=== PATIENT | female | born 1990 | race Caucasian/White ===

== ENCOUNTER 2019-05-02 15:40 | Emergency (ER) | payer BC, OTHER ==
--- NOTE | 2019-05-02 16:10 | ED ---
Fall HPI - General Chief Complaint: Fall Stated Complaint: [facility] - hit by hi-lo, ankle/arm injury Time Seen by Provider: 05/02/19 15:48 Source: patient, RN notes reviewed Mode of arrival: ambulatory Limitations: no limitations - History of Present Illness Initial Comments: 28-year-old female presented emergency Department from [facility] with chief level fall. Patient states she was at work states that she was struck by a high low causing her to fall. She has an abrasion to her right ankle complains that she fell onto her buttocks with mild discomfort. Patient refused x-rays at [facility]. Patient's tetanus is up-to-date. Patient was sent here for ultrasound as she is currently . Patient is A2. She denies any abdominal complaints denies any vaginal bleeding or vaginal discharge. - Related Data Home Medications Medication Instructions Recorded Confirmed Dayquil 1 tab PO BID PRN 04/07/16 04/07/16 Previous Rx's Medication Instructions Recorded Albuterol Inhaler [Ventolin Hfa 2 puff INHALATION Q4HR PRN #1 04/07/16 Inhaler] inhaler methylPREDNISolone [Medrol] 4 mg PO DIRECTED #1 tab.ds.pk 04/07/16 Cephalexin [Keflex] 500 mg PO Q8HR #15 cap 05/02/19 Allergies Allergy/AdvReac Type Severity Reaction Status Date / Time No Known Allergies Allergy Verified 05/02/19 15:48 Review of Systems ROS Statement: Those systems with pertinent positive or pertinent negative responses have been documented in the HPI. ROS Other: All systems not noted in ROS Statement are negative. Past Medical History Past Medical History: Asthma History of Any Multi-Drug Resistant Organisms: None Reported Past Surgical History: Breast Surgery Additional Past Surgical History / Comment(s): breast reduction Past Psychological History: No Psychological Hx Reported Smoking Status: Current every day smoker Past Alcohol Use History: None Reported Past Drug Use History: None Reported General Exam Limitations: no limitations General appearance: alert, in no apparent distress Head exam: Present: atraumatic, normocephalic, normal inspection Eye exam: Present: normal appearance, PERRL, EOMI. Absent: scleral icterus, conjunctival injection, periorbital swelling ENT exam: Present: normal exam, normal oropharynx, mucous membranes moist Neck exam: Present: normal inspection, full ROM. Absent: tenderness, meningismus, lymphadenopathy Respiratory exam: Present: normal lung sounds bilaterally. Absent: respiratory distress, wheezes, rales, rhonchi, stridor Cardiovascular Exam: Present: regular rate, normal rhythm, normal heart sounds. Absent: systolic murmur, diastolic murmur, rubs, gallop, clicks GI/Abdominal exam: Present: soft, normal bowel sounds. Absent: distended, tenderness, guarding, rebound, rigid Extremities exam: Present: other (Abrasion to the right lateral malleoli region, minimal tenderness neurovascular intact full range of motion remaining extremity exam within normal limits.) Back exam: Present: full ROM. Absent: tenderness, paraspinal tenderness, vertebral tenderness Skin exam: Present: warm, dry, intact, normal color. Absent: rash Course Vital Signs 05/02/19 15:43 Temperature 98.1 F Pulse Rate 81 Respiratory 20 Rate Blood Pressure 103/71 O2 Sat by Pulse 99 Oximetry Medical Decision Making - Medical Decision Making Ultrasound was obtained which shows no acute abnormality's. Patient has a single live IUP 6 weeks 1 day. Patient has an abrasion to her right ankle she's apparent tenderness. Patient will be discharged advised to follow-up with [facility] and [facility]. We treated for asymptomatic bacteria in . Return parameters were discussed. - Lab Data Lab Results 05/02/19 Range/Units 16:10 Urine Color Light Yellow Urine Appearance Clear (Clear) Urine pH 6.0 (5.0-8.0) Ur Specific [place] 1.010 (1.001-1.035) Urine Protein Negative (Negative) Urine Glucose (UA) Negative (Negative) Urine Ketones Negative (Negative) Urine Blood Negative (Negative) Urine Nitrite Negative (Negative) Urine Bilirubin Negative (Negative) Urine Urobilinogen <2.0 (<2.0) mg/dL Ur Leukocyte Esterase Moderate H (Negative) Urine RBC 3 (0-5) /hpf Urine WBC 10 H (0-5) /hpf Ur Squamous Epith Cells 5 H (0-4) /hpf Amorphous Sediment Rare H (None) /hpf Urine Bacteria Rare H (None) /hpf Urine Mucus Rare H (None) /hpf Disposition Clinical Impression: Fall, Abrasion, right ankle, initial encounter, , Asymptomatic bacteriuria during Disposition: HOME SELF-CARE Condition: Stable Instructions (If sedation given, give patient instructions): Abrasion (ED) Additional Instructions: Please return to the Emergency Department if symptoms worsen or any other concerns. Prescriptions: Cephalexin [Keflex] 500 mg PO Q8HR #15 cap Is patient prescribed a controlled substance at d/c from ED?: No Referrals: Glen Desai MD [Primary Care Provider] - 1-2 days Time of Disposition: 17:13
[2019-05-02 16:19] LABS: Amorphous Sediment,Urine Rare /hpf; Appearance,Urine Clear (Clear); Bacteria,Urine Rare /hpf; Bilirubin,Urine Negative (Negative); Blood,Urine Negative (Negative); Color,Urine Light Yellow; Glucose,Urine (UA) Negative (Negative); Ketones,Urine Negative (Negative); Leukocyte Esterase,Urine Moderate (Negative); Mucus,Urine Rare /hpf; Nitrite,Urine Negative (Negative); Protein,Urine Negative (Negative); RBC,Urine 3 /hpf (0-5); Squamous Epithelial Cell,Urine 5 /hpf (0-4); Urobilinogen,Urine <2.0 mg/dL (<2.0); WBC,Urine 10 /hpf (0-5)
--- NOTE | 2019-05-02 16:48 | US ---
EXAMINATION TYPE: Transabdominal DATE OF EXAM: 05/02/2019 4:34 PM COMPARISON: NONE CLINICAL HISTORY: fall, pain, sent from outpatient. Fall after being hit by hi-lo, 3, para 2 EXAM PERFORMED: Transabdominal (TA) EXAM MEASUREMENTS: GESTATIONAL AGE / DATING Physician Established: Not established yet Dates by LMP: (7 weeks/1 days) EDC: 12/18/2019 Dates by First Scan: This is 1st scan Dates by Current Scan for: (6 weeks/1 days) EDC: 12/25/2019 MATERNAL ANATOMY Uterus: 9.0 x 5.1 x 5.9cm, anteverted Right Ovary: 3.8 x 2.3 x 1.7cm Left Ovary: 3.4 x 2.4 x 1.9cm Post CDS / Adnexa: wnl Presence of free fluid: no Presence of corpus luteal cyst: not seen Presence of subchorionic bleed: no GESTATION / SURVEY CRL: 0.4cm (6 weeks/1 days) Yolk Sac (normal less than 6mm): 3.6mm Heart Rate: 121 bpm Rhythm: Normal IUP: Viable IUP Date of LMP: 03/13/2019 Beta HcG (if available): Not available at time of exam Viable single IUP measuring 6 weeks 1 day with a heart rate of 121bpm and an estimated delivery date of 12/25/2019. Single live intrauterine gestation is seen as the gestational sac, yolk sac, pole are present. No free fluid in pelvis. Both ovaries are seen. No suspicious extra ovarian adnexal lesions. IMPRESSION: Single live intrauterine gestation, mean crown-rump length is 0.4 cm corresponding to 6 w [place] 1 day old fetus.
[2019-05-02 17:26] VITALS: BP 119/75; PULSE 69; RESP 18; TEMP 98.3
== END 2019-05-02 17:25 | disposition home or self-care (01) ==
LOC: EC 15:40
DX: O9A.211 Injury, poisoning and certain other consequences of external causes complicating pregnancy, first trimester (principal); S90.511A Abrasion, right ankle, initial encounter; O99.89 Other specified diseases and conditions complicating pregnancy, childbirth and the puerperium; R82.71 Bacteriuria; O99.331 Smoking (tobacco) complicating pregnancy, first trimester; F17.200 Nicotine dependence, unspecified, uncomplicated; Z3A.01 Less than 8 weeks gestation of pregnancy; W19.XXXA Unspecified fall, initial encounter; Y92.69 Other specified industrial and construction area as the place of occurrence of the external cause; Y99.0 Civilian activity done for income or pay
CPT/HCPCS: 76801; 81001; 99284

== ENCOUNTER 2019-12-07 12:29 | Outpatient (CLI) | payer BC ==
[2019-12-07 13:13] VITALS: BP 121/66; PULSE 95; RESP 16; TEMP 97.3
--- NOTE | 2019-12-27 09:32 | P.MSEPDOC ---
Presenting Problems - Arrival Data Date of Arrival on Unit: 12/07/19 Time of Arrival on Unit: 12:29 Mode of Transport: Ambulatory - Complaint OB-Reason for Admission/Chief Complaint: NST Comment: pt here from office, RN at office was unable to capture consistent fhts with doppler, pt sent here for nst, pt reports + fm, denies lof/vb, abd soft and non tender Medical History - Information : 3 Para: 0 Term: 0 : 0 Abortions: Spontaneous or Elective: 2 Number of Living Children: 0 - Gestational Age Gestational Age by LIZ (wks/days): 38 Weeks and 3 Days - History Comment: pt scheduled for primary section for hx of breech Review of Systems - Review of Systems Constitutional: No problems Breast: No problems ENT: No problems Cardiovascular: No problems Respiratory: No problems Gastrointestinal: No problems Genitourinary: No problems Musculoskeletal: No problems Neurological: No problems Skin: No problems Vital Signs - Temperature Temperature: 97.3 F Temperature Source: Temporal Artery Scan - Pulse Right Brachial Pulse Rate: 95 Pulse Assessment Method: Automatic Cuff - Respirations Respiratory Rate: 16 Oxygen Delivery Method: Room Air - Blood Pressure Right Arm Blood Pressure: 121/66 Blood Pressure Mean: 84 Blood Pressure Source: Automatic Cuff Medical Screen Scoring (Pre) - Cervical Exam Dilation: Exam Deferred Effacement: Exam Deferred Membranes: Intact - Uterine Contractions Frequency: N/A Duration: N/A Intensity: N/A - Maternal Vital Signs Maternal Temperature: N/A Maternal Blood Pressure: N/A Signs of Preeclampsia: N/A Maternal Respirations: N/A - Maternal Trauma Maternal Trauma: N/A - Assessment - Baby A Baseline FHR: 125 Heart Rate - NICHD Category: Category I (Normal) = 0 NST: Reactive Position: N/A Station: N/A - Total Score - Baby A Total Score - Baby A: 0 - Total Score - Baby B Total Score - Baby B: 0 - Total Score - Baby C Total Score - Baby C: 0 - Level of Risk - Baby A Level of Risk - Baby A: Low (0-5) - Level of Risk - Baby B Level of Risk - Baby B: Low (0-5) - Level of Risk - Baby C Level of Risk - Baby C: Low (0-5) Physician Notification (Pre) - Physician Notified Physician Notified Date: 12/07/19 Physician Notified Time: 13:04 New Order Received: Yes (dc home) - Notification Comment Comment: reviewed nst with dr valentino, pt ok to dc home at this time Disposition - Disposition OB Disposition: Discharge to home, Written follow up instructions reviewed Discharge Date: 12/07/19 Discharge Time: 13:05 I agree with the RN Medical Screening Exam: Yes Risk & Benefit of care provided described in d/c instruction: Yes Diagnosis: MATERN CARE FOR ABNLT FETL HRT RATE OR RHYM, UNSP TRI, UNSP
== END 2019-12-07 13:05 | disposition home or self-care (01) ==
LOC: FBPOP 12:29
PROVIDERS: ATTEND Obstetrics & Gynecology
DX: O36.8330 Maternal care for abnormalities of the fetal heart rate or rhythm, third trimester, not applicable or unspecified (principal); Z3A.38 38 weeks gestation of pregnancy
CPT/HCPCS: 59025; 99213

== ENCOUNTER → 2019-12-10 | Outpatient (CLI) | payer BC, OTHER | END | disposition home or self-care (01) | LOC: LABWHC1 09:18 | PROVIDERS: ATTEND Obstetrics & Gynecology | DX: Z11.59 Encounter for screening for other viral diseases (principal) | CPT/HCPCS: 87635 ==

== ENCOUNTER 2019-12-11 12:40 | Inpatient (IN) | payer OTHER ==
[2019-12-11] MEDS ORDERED: LACTATED RINGERS 1,000 ML IV ONE (13:33)
[2019-12-11] MEDS ORDERED: CITRIC ACID-SODIUM CITRATE 15 ML CUP PO ONE (13:33)
[2019-12-11 14:15] LABS: Basophils % (A) 0 %; Eosinophils # (A) 0.2 k/uL (0-0.7); Eosinophils % (A) 1 %; HCT 37.5 % (34.0-46.0); HGB 12.2 gm/dL (11.4-16.0); Lymphocytes # (A) 2.3 k/uL (1.0-4.8); Lymphocytes % (A) 15 %; MCH 29.3 pg (25.0-35.0); MCHC 32.5 g/dL (31.0-37.0); MCV 90.2 fL (80.0-100.0); Mean Platelet Volume 8.1; Monocytes # (A) 0.8 k/uL (0-1.0); Monocytes % (A) 5 %; Neutrophils # (A) 12.2 k/uL (1.3-7.7); Neutrophils % (A) 78 %; Platelet Count 324 k/uL (150-450); RBC 4.15 m/uL (3.80-5.40); WBC 15.7 k/uL (3.8-10.6)
[2019-12-11] MEDS ORDERED: ONDANSETRON 4 MG/2 ML VIAL ONE (14:26)
[2019-12-11] MEDS ORDERED: OXYTOCIN 10 UNIT/ML 1 ML VIAL ONE (14:26)
[2019-12-11] MEDS ORDERED: KETOROLAC 30 MG/ML 1 ML VIAL ONE (14:26)
[2019-12-11] MEDS ORDERED: MORPHINE SULFATE (PF) 0.3 MG/0.3 ML SYR ONE (14:26)
[2019-12-11 15:08] LABS: Amphetamine Screen,Urine Not Detected (NotDetected); Barbiturate Screen,Urine Not Detected (NotDetected); Benzodiazepines Screen,Urine Not Detected (NotDetected); Cocaine Screen,Urine Not Detected (NotDetected); Methadone Screen, Urine Not Detected (NotDetected); Opiate Screen,Urine Not Detected (NotDetected); Oxycodone Screen, Urine Not Detected (NotDetected); Phencyclidine Screen,Urine Not Detected (NotDetected); Tricyclic Antidepressant,Urine Not Detected (NotDetected); Urn Cannabinoid Scrn Detected (NotDetected)
[2019-12-11] MEDS ORDERED: ONDANSETRON 4 MG/2 ML VIAL IVP PRN (15:08)
[2019-12-11] MEDS ORDERED: NALOXONE 0.4 MG/ML 1 ML VIAL IV PRN (15:08)
[2019-12-11] MEDS ORDERED: diphenhydrAMINE 25 MG CAP PO PRN (15:08)
[2019-12-11] MEDS ORDERED: ACETAMINOPHEN TAB 325 MG TAB PO PRN (15:08)
[2019-12-11] MEDS ORDERED: diphenhydrAMINE 50 MG/ML 1 ML VIAL IVP PRN (15:08)
[2019-12-11] MEDS ORDERED: LANOLIN CREAM 5 GM TUBE TOPICAL PRN (15:08)
[2019-12-11] MEDS ORDERED: SIMETHICONE 80 MG CHEWABLE PO PRN (15:08)
[2019-12-11] MEDS ORDERED: METOCLOPRAMIDE 5 MG/ML 2 ML VIAL IVP PRN (15:08)
[2019-12-11] MEDS ORDERED: ZOLPIDEM 5 MG TAB PO PRN (15:08)
[2019-12-11] MEDS ORDERED: OXYTOCIN 20 UNITS/1000 ML NS 1,000 ML IV SCH (15:15)
--- NOTE | 2019-12-11 17:53 | P.HPOB ---
History of Present Illness H&P Date: 12/11/19 Chief Complaint: Leaking of fluid, known breech presentation This patient is a 29-year-old 3 para 0 female estimated date of confinement 12/18/2019 estimated gestational age 39-0/7 weeks who presented to labor and delivery with complaints of leaking of fluid since 9:30 or 10:00 this morning. Patient's was called by the hospital for her pre-surgical instructions and at that time she told them that she had been leaking fluid and was instructed to come to labor and delivery. Patient has known breech presentation and was scheduled for tomorrow. Evaluation here shows gross rupture membranes with a positive amnio sure and persistent breech. Patient's care is per Dr. Nelson appears to be complicated by THC use. Review of Systems Genitourinary: Reports Menstruation: Reports amenorrhea Past Medical History Past Medical History: Asthma History of Any Multi-Drug Resistant Organisms: None Reported Past Surgical History: Breast Surgery Additional Past Surgical History / Comment(s): breast reduction Past Anesthesia/Blood Transfusion Reactions: No Reported Reaction Past Psychological History: No Psychological Hx Reported Smoking Status: Current every day smoker Past Alcohol Use History: None Reported Past Drug Use History: Marijuana - Past Family History Sister(s) History Unknown: Yes Additional Family Medical History / Comment(s): growth hormone issue Medications and Allergies Home Medications Medication Instructions Recorded Confirmed Type Pnv,Calcium 72/Iron/Folic Acid 1 each PO DAILY 12/07/19 12/11/19 History [ Plus Tablet] Allergies Allergy/AdvReac Type Severity Reaction Status Date / Time No Known Allergies Allergy Verified 12/11/19 13:13 Exam Vital Signs Temp Pulse Resp BP Pulse Ox 12/11/19 17:14 97.8 F 80 16 140/84 98 12/11/19 16:44 97.7 F 81 18 137/80 98 12/11/19 16:14 83 17 134/63 98 12/11/19 15:57 103 H 18 133/73 97 12/11/19 15:44 83 18 133/82 98 12/11/19 15:41 96.9 F L 91 18 124/72 12/11/19 15:32 96.9 F L 91 18 124/72 12/11/19 15:26 97.6 F 100 16 129/74 97 12/11/19 15:14 98.0 F 99 16 127/61 98 Intake and Output 12/11/19 12/11/19 12/11/19 06:59 14:59 22:59 Intake Total 1000 Output Total 200 Balance 800 Intake: IV 1000 Output: Urine 200 Other: Voiding Method Indwelling Catheter # Voids 1 Weight 100.244 kg 100.244 kg - OBG Physical Exam Abdomen: bowel sounds normal, no diffuse tenderness, no bruit present, no guarding noted, no hepatomegaly, no splenomegaly, no mass Vulva: both: normal Vagina: no discharge Cervix: no lesion (1 cm and thick, gross rupture membranes), no discharge Uterus: enlarged Results blood work shows she is A positive, rubella immune, RPR nonreactive, hepatitis B negative, ultrasounds have been normal with exception of breech presentation. Group B strep was positive Result Diagrams: 12/11/19 13:56 Abnormal Lab Results - Last 24 Hours (Table) 12/11/19 12/11/19 Range/Units 13:56 14:06 WBC 15.7 H (3.8-10.6) k/uL Neutrophils # 12.2 H (1.3-7.7) k/uL U Marijuana (THC) Screen Detected H (NotDetected) Assessment and Plan Assessment: This is a 29-year-old 3 para 0 female 39-0/7 weeks gestation presents to labor and delivery with spontaneous rupture membranes, known breech presentation. Plan is primary low transverse section. Patient is a positive group B strep and therefore will be given antibiotics and the director of student financial services. Alerted to the status. Patient I discussed surgery and risks including risks of infection, bleeding, possible injury bowel, bladder, vessels, and/or other organs. All the patient's questions are answered and a written consent is obtained. (1) 39 weeks gestation of Current Visit: Yes Status: Acute Code(s): Z3A.39 - 39 WEEKS GESTATION OF SNOMED Code(s): 39918530 (2) Breech presentation Current Visit: Yes Status: Acute Code(s): O32.1XX0 - MATERNAL CARE FOR BREECH PRESENTATION, UNSP SNOMED Code(s): 0203095 (3) SROM (spontaneous rupture of membranes) Current Visit: Yes Status: Acute Code(s): SFI3486 - SNOMED Code(s): 604413234 (4) Substance abuse Current Visit: Yes Status: Acute Code(s): F19.10 - OTHER PSYCHOACTIVE SUBSTANCE ABUSE, UNCOMPLICATED SNOMED Code(s): 71658068
--- NOTE | 2019-12-11 17:59 | P.OP ---
Date of Procedure: 12/11/19 Preoperative Diagnosis: #1: 39-0/7 week . #2: Spontaneous rupture membranes. #3: Persistent breech presentation. #4: Positive group B strep culture #5: Substance abuse Postoperative Diagnosis: Same Procedure(s) Performed: Primary low transverse section Anesthesia: spinal Surgeon: Mao Judd Make Up Operator #1: Allie Carter Estimated Blood Loss (ml): 600 Pathology: none sent Condition: stable Disposition: floor Indications for Procedure: Please see dictated H&P for intimate details of this patient's admission. Brief summary this is a 29-year-old 3 para 0 female 39-0/7 weeks gestation admitted to labor and delivery with spontaneous rupture membranes and known breech presentation. Breech presentation is confirmed. Patient is a positive group B strep and therefore is given one dose of antibiotics. Plan is to proceed with section and this is previously been discussed with her and I rediscuss the surgery. She understands the risks of infection, bleeding, possible injury bowel, bladder, vessels, and/or other organs. All the patient's questions are answered and written consent is obtained. Operative Findings: This is a vigorous viable female infant Apgars 9 and 9 delivery time is 1444 hrs. is found to be in the sacrum anterior farrukh breech presentation Description of Procedure: This patient has a Escamilla catheter placed to straight drain. She is subsequently taken to the operating room where she sat up and spinal anesthetic is administered without incident. With adequate level of anesthesia she has abdominal prep and drape. Scalpels and taken and a Pfannenstiel skin incision is then made. A second scalpel is taken down to the fascia and the fascia scored with a knife. Fascial incision extended bilaterally using the Resendiz scissors. Fascia is then dissected off the rectus muscles sharply. Rectus muscles are the peritoneum identified and entered sharply. Peritoneal incision extended superior and inferior without difficulty. Bladder blade is then placed. Bladder peritoneum was taken off the lower uterine segment sharply. Scalpels and taken a low transverse uterine incision is then made. I then entered the uterine cavity bluntly with a hemostat and there is loss of a scant amount of clear fluid. This incision is extended bluntly. The is found to be sacrum anterior, farrukh breech. Using the usual breech maneuvers this is delivered atraumatically. This is a vigorous viable female Apgars are 9 and 9 delivery time is 1444 hrs. After delivery of the infant the umbilical cord is doubly clamped and cut infant is handed off to the nurses in attendance. The placenta is then manually extracted intact. Uterus is then externalized and the uterine incision demarcated with Mulligan clamps. Uterine incision is then closed using 0 Vicryl running locked fashion 2 layers. Excellent hemostasis is noted. The parietal peritoneum was then closed using a 3-0 Vicryl. Excess fluid is removed from the abdomen and pelvis. Uterine incision appears to be hemostatic. Uterus placed back into the abdomen. Parietal peritoneum was then closed in 0 Vicryl running fashion. Rectus muscle reapproximate 0 Vicryl interrupted fashion. Fascial incision is closed using 0 PDS. The fascial incision is intact and hemostatic. Subcutaneous tissues and closed using a 3-0 Vicryl. Skin is and closed using roseline. All counts are correct 3. There are no complications. and mother are stable in delivery room.
[2019-12-11] MEDS: SENNOSIDES-DOCUSATE SODIUM 1 EACH TAB PO SCH (20:32)
[2019-12-11] MEDS: KETOROLAC 30 MG/ML 1 ML VIAL IVP PRN (22:19)
[2019-12-11] MEDS: LACTATED RINGERS 1,000 ML IV SCH (22:21)
[2019-12-12] MEDS: LACTATED RINGERS 1,000 ML IV SCH ×3 (00:12→17:56)
[2019-12-12] MEDS: KETOROLAC 30 MG/ML 1 ML VIAL IVP PRN (04:15)
[2019-12-12 06:22] LABS: Basophils % (A) 0 %; Eosinophils # (A) 0.2 k/uL (0-0.7); Eosinophils % (A) 1 %; HCT 33.7 % (34.0-46.0); HGB 10.9 gm/dL (11.4-16.0); Lymphocytes # (A) 1.9 k/uL (1.0-4.8); Lymphocytes % (A) 13 %; MCH 29.8 pg (25.0-35.0); MCHC 32.3 g/dL (31.0-37.0); MCV 92.2 fL (80.0-100.0); Mean Platelet Volume 7.5; Monocytes # (A) 0.7 k/uL (0-1.0); Monocytes % (A) 5 %; Neutrophils # (A) 11.6 k/uL (1.3-7.7); Neutrophils % (A) 80 %; Platelet Count 288 k/uL (150-450); RBC 3.65 m/uL (3.80-5.40); RDW 14.4 % (11.5-15.5); WBC 14.5 k/uL (3.8-10.6)
[2019-12-12] MEDS: SENNOSIDES-DOCUSATE SODIUM 1 EACH TAB PO SCH ×2 (08:00→19:55)
--- NOTE | 2019-12-12 08:53 | P.PNOBGPC ---
Subjective - Subjective Principal diagnosis: Postop day 1 Interval history: Overall doing well. She is having some difficulty with voiding but that will be monitored through the day. All the questions are answered for her at this time. Vital signs are stable. She is afebrile. Patient reports: Reports appetite normal, Reports voiding normally, Reports pain well controlled, Reports ambulating normally [place]: doing well Objective - Vital Signs Latest vital signs: Vital Signs Temp Pulse Resp BP Pulse Ox 12/12/19 08:00 97.7 F 88 16 111/63 97 12/12/19 04:00 98.0 F 86 18 113/74 97 12/12/19 00:00 98.1 F 83 18 122/71 97 12/11/19 20:00 96.7 F L 76 18 122/81 98 12/11/19 17:14 97.8 F 80 16 140/84 98 12/11/19 16:44 97.7 F 81 18 137/80 98 12/11/19 16:14 83 17 134/63 98 12/11/19 15:57 103 H 18 133/73 97 12/11/19 15:44 83 18 133/82 98 12/11/19 15:41 96.9 F L 91 18 124/72 12/11/19 15:32 96.9 F L 91 18 124/72 12/11/19 15:26 97.6 F 100 16 129/74 97 12/11/19 15:14 98.0 F 99 16 127/61 98 Intake and Output 12/11/19 12/12/19 12/12/19 22:59 06:59 14:59 Intake Total 1000 Output Total 800 300 Balance 200 -300 Intake: IV 1000 Output: Urine 200 300 Straight 100 Estimated Blood Loss 600 Other: Voiding Method Indwelling Catheter # Voids 1 Weight 100.244 kg - Exam Lungs: bilateral: normal Chest: Normal S1, Normal S2 Extremities: Present: normal Abdomen: Present: normal appearance, soft. Absent: distention, tenderness Incision: Present: normal, dry, intact Uterus: Present: normal, firm - Labs Labs: Abnormal Lab Results - Last 24 Hours (Table) 12/11/19 12/11/19 12/12/19 Range/Units 13:56 14:06 06:08 WBC 15.7 H 14.5 H (3.8-10.6) k/uL RBC 3.65 L (3.80-5.40) m/uL Hgb 10.9 L (11.4-16.0) gm/dL Hct 33.7 L (34.0-46.0) % Neutrophils # 12.2 H 11.6 H (1.3-7.7) k/uL U Marijuana (THC) Screen Detected H (NotDetected)
--- NOTE | 2019-12-12 09:07 | P.PN ---
Progress Note - Text Progress Note Date: 12/12/19 Patient seen and examined at beside. POD #1 s/p with spinal anesthesia and duramorph. Patient feels great today without complaints. Patient denies chest pain, sob, fever, chills, dizziness, headache, N/V. Patient is able to ambulate and void without difficulty. Patients procedure site is clean without erythema. All questions answered. Moreno Watters DO
[2019-12-12] MEDS: IBUPROFEN 600 MG TAB PO PRN ×2 (11:52→19:55)
[2019-12-12] MEDS: HYDROcodone/APAP 5-325MG 1 EACH TAB PO PRN ×2 (16:59→23:10)
[2019-12-13] MEDS: LACTATED RINGERS 1,000 ML IV SCH (00:06)
[2019-12-13] MEDS: IBUPROFEN 600 MG TAB PO PRN ×2 (02:12→10:08)
[2019-12-13] MEDS: HYDROcodone/APAP 5-325MG 1 EACH TAB PO PRN (04:56)
[2019-12-13] MEDS: SENNOSIDES-DOCUSATE SODIUM 1 EACH TAB PO SCH (08:21)
--- NOTE | 2019-12-13 08:58 | P.DS ---
Providers Date of admission: 12/11/19 13:24 Expected date of discharge: 12/13/19 Attending physician: Linclon Nelson Primary care physician: Stated None Hospital Course: Patient is doing very well postoperative day 2. She is ambulating, voiding and tolerating her diet. She voices no complaints and is requesting discharge home today. Prescription for Landing and Motrin were provided. Discharge instructions were thoroughly reviewed and all questions were answered for her. She has asked that the Roseline remain in until Tuesday and at that time I'll do a follow-up appointment and remove roseline. All the questions are answered for her at this time. On physical exam vital signs are stable and afebrile. Heart regular, lungs clear, extremities without pain. Abdomen soft uterus is firm and lochia is reported to be light. Her incision is otherwise clean dry and intact. Assessment postop day 2. Plan discharged home follow up in Tuesday for staple removal. Patient Condition at Discharge: Good Plan - Discharge Summary New Discharge Prescriptions: New Ibuprofen [Motrin] 600 mg PO Q6HR PRN #30 tab PRN Reason: Pain HYDROcodone/APAP 5-325MG [[place] 5-325] 1 tab PO Q4HR PRN #30 tab PRN Reason: Pain No Action Pnv,Calcium 72/Iron/Folic Acid [ Plus Tablet] 1 each PO DAILY Discharge Medication List Pnv,Calcium 72/Iron/Folic Acid [ Plus Tablet] 1 each PO DAILY 12/07/19 [History] HYDROcodone/APAP 5-325MG [[place] 5-325] 1 tab PO Q4HR PRN #30 tab 12/13/19 [Rx] Ibuprofen [Motrin] 600 mg PO Q6HR PRN #30 tab 12/13/19 [Rx] Follow up Appointment(s)/Referral(s): Lincoln Nelson DO [Doctor of Osteopathic Medicine] - 12/18/19 Activity/Diet/Wound Care/Special Instructions: No heavy lifting, limit stairs and driving, and pelvic rest. If any high temperatures, heavy bleeding, or severe pain call my office. Appointment for Tuesday for staple removal placed Discharge Disposition: HOME SELF-CARE
[2019-12-13 09:29] VITALS: RESP 20
[2019-12-13 09:30] VITALS: BP 126/65; PULSE 99; TEMP 98.5
== END 2019-12-13 15:30 | disposition home or self-care (01) | DRG 788 ==
LOC: FBPOP 12:40 → 4FBP 13:24
PROVIDERS: ADMIT Obstetrics & Gynecology; ATTEND Obstetrics & Gynecology
PROC: 10D00Z1 Extraction of Products of Conception, Low, Open Approach (ICD-10-PCS; principal; 2019-12-11 15:00)
DX: O32.1XX0 Maternal care for breech presentation, not applicable or unspecified (principal); O99.334 Smoking (tobacco) complicating childbirth; F17.210 Nicotine dependence, cigarettes, uncomplicated; O99.52 Diseases of the respiratory system complicating childbirth; J45.909 Unspecified asthma, uncomplicated; F12.10 Cannabis abuse, uncomplicated; O99.89 Other specified diseases and conditions complicating pregnancy, childbirth and the puerperium; O99.62 Diseases of the digestive system complicating childbirth; O99.824 Streptococcus B carrier state complicating childbirth; K21.9 Gastro-esophageal reflux disease without esophagitis; Z37.0 Single live birth; Z3A.39 39 weeks gestation of pregnancy
CPT/HCPCS: 59025; 80306; 84112; 85025; 86850; 86900; 86901; 99213

== ENCOUNTER 2021-10-02 06:12 | Inpatient (IN) | payer OTHER ==
--- NOTE | 2021-10-01 12:57 | P.HPOB ---
History of Present Illness H&P Date: 10/01/21 Chief Complaint: Repeat and family planning This patient is a pleasant 31-year-old 4 para 1 female estimated date confinement 10/21/2021 estimated gestational age 37-2/7 weeks who presents to labor and delivery for elective repeat section and also requests tubal sterilization. Patient's care is initially with Dr. Justin it is complicated by a circumvallate placenta and the placental cyst. Patient's been followed by maternal medicine and they saw her earlier this week and the placental cyst is persistent and I recommended delivery at 37 weeks. Patient's had a previous section and desires repeat she is also requesting tubal ligation. also appears to be complicated by late to seek care, marijuana use, and tobacco use. Patient I discussed that a tubal ligation is permanent however there is a failure rate of less than 5 per thousand procedures done she wishes to proceed. Review of Systems Genitourinary: Reports as per HPI, Reports Menstruation: Reports amenorrhea Past Medical History Past Medical History: Asthma Additional Past Medical History / Comment(s): Patient had a previous section for breech presentation. History of Any Multi-Drug Resistant Organisms: None Reported Past Surgical History: Breast Surgery, Section Additional Past Surgical History / Comment(s): breast reduction Past Anesthesia/Blood Transfusion Reactions: No Reported Reaction Past Psychological History: No Psychological Hx Reported Past Alcohol Use History: None Reported Past Drug Use History: Marijuana - Past Family History Sister(s) History Unknown: Yes Additional Family Medical History / Comment(s): growth hormone issue Medications and Allergies Home Medications Medication Instructions Recorded Confirmed Type Pnv,Calcium 72/Iron/Folic Acid 1 each PO DAILY 12/07/19 12/11/19 History [ Plus Tablet] HYDROcodone/APAP 5-325MG [[place] 1 tab PO Q4HR PRN #30 tab 12/13/19 Rx 5-325] Ibuprofen [Motrin] 600 mg PO Q6HR PRN #30 tab 12/13/19 Rx Allergies Allergy/AdvReac Type Severity Reaction Status Date / Time No Known Allergies Allergy Verified 12/11/19 13:13 Exam - OBG Physical Exam Abdomen: bowel sounds normal, no diffuse tenderness, no bruit present, no guarding noted, no hepatomegaly, no splenomegaly, no mass Vulva: both: normal Vagina: normal moisture, no discharge Cervix: no lesion (Closed), no discharge Uterus: enlarged (Fundal height 37 cm) Results labs show she is A+, rubella immune, RPR nonreactive, hepatitis B negative, HIV is nonreactive, ultrasounds as above, group B strep was negative, Glucola was 137 with a normal three-hour gtt. Assessment and Plan Assessment: This is a pleasant 31-year-old 4 para 1 female 37-2/7 weeks gestation with known circumvallate placenta and placental cyst with recommendations per maternal medicine for delivery at this time. Patient had a previous section and has an unfavorable cervix is requesting repeat and also requesting permanent sterilization. Plan is repeat low transverse section and bilateral partial salpingectomy. Patient does understand that a tubal ligation is permanent however it does have a failure rate of approximately less than 5 per thousand procedures done. She also understands surgery itself and apparently has risks including risks of infection, bleeding, possible injury bowel, bladder, vessels, and/or other organs. All the patient's questions are answered written consent obtained. (1) 37 weeks gestation of Status: Acute Code(s): Z3A.37 - 37 WEEKS GESTATION OF SNOMED Code(s): 96827317 (2) Previous delivery affecting Status: Acute Code(s): O34.219 - MATERNAL CARE FOR UNSP TYPE SCAR FROM PREVIOUS DEL SNOMED Code(s): 626152184 (3) Circumvallate placenta Status: Acute Code(s): O43.119 - CIRCUMVALLATE PLACENTA, UNSPECIFIED TRIMESTER SNOMED Code(s): 9443625 (4) Placental cyst affecting in third trimester Status: Acute Code(s): O43.193 - OTHER MALFORMATION OF PLACENTA, THIRD TRIMESTER SNOMED Code(s): 856035237 (5) Family planning Status: Acute Code(s): Z30.09 - ENCOUNTER FOR OTH GENERAL CNSL AND ADVICE ON CONTRACEPTION SNOMED Code(s): 272044039 (6) Substance abuse affecting in third trimester, antepartum Status: Acute Code(s): O99.323 - DRUG USE COMPLICATING , THIRD TRIMESTER SNOMED Code(s): 55623609
[2021-10-02] MEDS ORDERED: LACTATED RINGERS 1,000 ML IV ONE (06:24)
[2021-10-02] MEDS ORDERED: CITRIC ACID-SODIUM CITRATE 15 ML CUP PO ONE (06:24)
[2021-10-02 06:40] LABS: Basophils % (A) 0 %; Eosinophils # (A) 0.2 k/uL (0-0.7); Eosinophils % (A) 1 %; HCT 36.2 % (34.0-46.0); HGB 12.3 gm/dL (11.4-16.0); Lymphocytes # (A) 2.8 k/uL (1.0-4.8); Lymphocytes % (A) 19 %; MCH 31.5 pg (25.0-35.0); MCV 92.7 fL (80.0-100.0); Mean Platelet Volume 7.5; Monocytes # (A) 0.7 k/uL (0-1.0); Monocytes % (A) 5 %; Neutrophils # (A) 10.9 k/uL (1.3-7.7); Neutrophils % (A) 73 %; Platelet Count 311 k/uL (150-450); RDW 13.8 % (11.5-15.5)
[2021-10-02 07:24] LABS: Amphetamine Screen,Urine Not Detected (NotDetected); Barbiturate Screen,Urine Not Detected (NotDetected); Benzodiazepines Screen,Urine Not Detected (NotDetected); Cocaine Screen,Urine Not Detected (NotDetected); Methadone Screen, Urine Not Detected (NotDetected); Opiate Screen,Urine Not Detected (NotDetected); Oxycodone Screen, Urine Not Detected (NotDetected); Phencyclidine Screen,Urine Not Detected (NotDetected); Tricyclic Antidepressant,Urine Not Detected (NotDetected); Urn Cannabinoid Scrn Not Detected (NotDetected)
[2021-10-02] MEDS: LACTATED RINGERS 1,000 ML IV SCH ×3 (07:28→22:51)
[2021-10-02] MEDS ORDERED: PHENYLEPHRINE-0.9% NACL SYG 1,000 MCG/10 ML SYRINGE ONE (07:48)
[2021-10-02] MEDS ORDERED: ONDANSETRON 4 MG/2 ML VIAL ONE (07:48)
[2021-10-02] MEDS ORDERED: MORPHINE SULFATE (PF) 0.3 MG/0.3 ML SYR ONE (07:48)
[2021-10-02] MEDS ORDERED: NALBUPHINE 10 MG/ML (1 ML AMP) ONE (07:48)
[2021-10-02] MEDS ORDERED: LANOLIN CREAM 5 GM TUBE TOPICAL PRN (08:44)
[2021-10-02] MEDS ORDERED: diphenhydrAMINE 25 MG CAP PO PRN (08:44)
[2021-10-02] MEDS ORDERED: SIMETHICONE 80 MG CHEWABLE PO PRN (08:44)
[2021-10-02] MEDS ORDERED: METOCLOPRAMIDE 5 MG/ML 2 ML VIAL IVP PRN (08:44)
[2021-10-02] MEDS ORDERED: NALOXONE 0.4 MG/ML 1 ML VIAL IV PRN (08:44)
[2021-10-02] MEDS ORDERED: diphenhydrAMINE 50 MG/ML 1 ML VIAL IVP PRN (08:44)
[2021-10-02] MEDS ORDERED: ZOLPIDEM 5 MG TAB PO PRN (08:44)
[2021-10-02] MEDS ORDERED: ONDANSETRON 4 MG/2 ML VIAL IVP PRN (08:44)
[2021-10-02] MEDS ORDERED: OXYTOCIN 30 UNITS/500 ML NS 30 UNIT in SALINE 1 500ML.BAG IV SCH (08:45)
--- NOTE | 2021-10-02 09:02 | P.OP ---
Date of Procedure: 10/02/21 Preoperative Diagnosis: #1: 37-2/7 week intrauterine . #2: Previous section with unfavorable cervix desires repeat. #3: Circumvallate placenta #4: Placental cyst #5: Multi parity desires permanent sterilization. #6: Tobacco and THC use Postoperative Diagnosis: Same Procedure(s) Performed: #1: Repeat low transverse section. #2: Bilateral partial salpingectomy Anesthesia: spinal Surgeon: Mao Judd Occ Med Physician #1: Allie Carter Estimated Blood Loss (ml): 600 Pathology: other (Placenta and bilateral fallopian tube segments) Condition: stable Disposition: floor Indications for Procedure: Please see dictated H&P for intimate details of this patient's admission. In brief summary this is a 31-year-old 4 para 1 female 37-2/7 weeks gestation admitted to labor and delivery for repeat low transverse s ection and tubal ligation secondary to circumvallate placenta and placental cyst. Patient understands a tubal ligation is permanent however there is a failure rate of less than 5 per thousand procedures done. She also understands that surgery itself and apparently has risks including risks of infection, bleeding, possible injury bowel, bladder, vessels, and/or other organs. All the patient's questions are answered and written consent is obtained. Operative Findings: This is a viable female infant Apgars 6, 7, 8 at 0809 hrs. Infant appeared grossly normal. The placenta showed circumvallate changes. I cannot grossly see the placental cyst. Patient had normal-appearing tubes and ovaries. Description of Procedure: This patient has a [place] catheter placed to straight drain. She is subsequently taken to the operating room where she sat up and spinal anesthetic is administered without incident. With an adequate level of anesthesia she has abdominal prep and drape. Scalpels and taken the previous Pfannenstiel incision is incised. A second scalpel is taken down the fascia and the fascia scored with a knife. Fascial incision extended bilaterally using the Resendiz scissors. Fascia is dissected sharply off the rectus muscles. Rectus muscles are . The peritoneum was identified and entered sharply. Peritoneal incision is extended superior and inferior without difficulty. Bladder blade is then placed. Scalpels and taken a low transverse uterine incision is then made. Using a hemostat I into the uterine cavity bluntly and there is loss of large amount of clear fluid. Using fundal pressure the infant's head was guided to the incision and delivered. Mouth and nares are bulb suctioned. There is a nuchal cord which is loose and then reduced. With more fundal pressure we then have deliver the rest this 's body. This is a vigorous viable female Apgars are 6, 7, 8. Infant does appear quite wet and therefore we do suction at that time. Umbilical cord is doubly clamped and cut and handed off to the nurses in attendance. With this done the placenta is then manually extracted intact. The placenta has significant changes consistent with circumvallate presentation. The uterus is then externalized uterine incision demarcated with Mulligan clamps. Uterine incision is then closed using 0 Vicryl running locked fashion 2 layers. Excellent hemostasis is noted. Then turned my attention to the left fallopian tube. Approximately 4 cm from the cornual insertion a small window is made to the mesial salpinx with Bovie cautery. Using a 2-0 silk I doubly ligate a 2 cm segment of tube. This is excised with Metzenbaum scissors and then the tubal ends are cauterized as well. Excellent hemostasis is noted. Similar technique is done on the right side with similar results. With this done excess fluid is removed from the abdomen and pelvis. Uterus placed back into the abdomen. Final inspection of the uterine incision and the tubal and shows to be hemostatic. Parietal peritoneum was then identified and closed using 0 Vicryl running fashion. Rectus muscle reapproximate 0 Vicryl interrupted fashion. Fascial incision is then closed using 0 PDS. Fascial incision is intact and hemostatic. Subcutaneous tissues and closed using a 3-0 Vicryl. Skin is and closed using roseline. All counts are correct 3. There are no complications. is taken to special care for evaluation mother is taken to her birthing suite in satisfactory condition.
[2021-10-02] MEDS: KETOROLAC 15 MG/ML 1 ML VIAL IVP SCH ×2 (10:50→18:01)
[2021-10-02] MEDS: SENNOSIDES-DOCUSATE SODIUM 1 EACH TAB PO SCH (19:59)
[2021-10-03] MEDS: KETOROLAC 15 MG/ML 1 ML VIAL IVP SCH ×3 (00:15→19:32)
[2021-10-03 07:37] LABS: Basophils % (A) 0 %; Eosinophils # (A) 0.2 k/uL (0-0.7); Eosinophils % (A) 1 %; HCT 34.5 % (34.0-46.0); HGB 11.8 gm/dL (11.4-16.0); Lymphocytes # (A) 2.5 k/uL (1.0-4.8); Lymphocytes % (A) 17 %; MCH 31.5 pg (25.0-35.0); MCHC 34.1 g/dL (31.0-37.0); MCV 92.4 fL (80.0-100.0); Mean Platelet Volume 7.5; Monocytes # (A) 0.8 k/uL (0-1.0); Monocytes % (A) 5 %; Neutrophils # (A) 11.3 k/uL (1.3-7.7); Neutrophils % (A) 76 %; Platelet Count 277 k/uL (150-450); RBC 3.73 m/uL (3.80-5.40); RDW 13.3 % (11.5-15.5)
[2021-10-03] MEDS: ACETAMINOPHEN TAB 500 MG TAB PO PRN ×2 (12:22→20:23)
--- NOTE | 2021-10-03 12:36 | P.PNOBGPC ---
Subjective - Subjective Principal diagnosis: Status post section with bilateral partial salpingectomy POD #1 Interval history: Patient is doing okay. She has ambulated a little bit. She is passing some flatus but no bowel movement yet. She is urinating without difficulty. She sta radha her pain has been well controlled. Lochia is minimal. She is bottle feeding. Patient reports: Reports appetite normal, Reports voiding normally, Reports pain well controlled, Reports ambulating normally Riva: other (In level I nursery) Objective - Vital Signs Latest vital signs: Vital Signs Temp Pulse Resp BP Pulse Ox 10/03/21 12:00 16 100 10/03/21 08:00 98.1 F 72 16 93/60 100 10/03/21 03:52 97.5 F L 79 18 95/55 100 10/03/21 00:15 97.5 F L 69 18 106/64 95 10/02/21 19:55 97.5 F L 75 18 105/72 99 10/02/21 16:00 96.4 F L 60 16 101/52 100 10/02/21 13:00 60 16 103/60 100 Intake and Output 10/02/21 10/03/21 10/03/21 22:59 06:59 14:59 Output Total 670 450 450 Balance -670 -450 -450 Output: Urine 650 450 450 Uretheral ([place]) 350 Output, Quantitative 20 Blood Loss Other: # Voids 0 1 - Exam Extremities: Present: normal. Absent: tenderness, edema Abdomen: Present: soft (Positive bowel sounds 4), distention (Slight). Absent: tenderness Incision: Present: normal, dry, intact. Absent: erythematous Uterus: Present: normal, firm. Absent: tenderness - Labs Labs: Abnormal Lab Results - Last 24 Hours (Table) 10/03/21 Range/Units 07:18 WBC 15.0 H (3.8-10.6) k/uL RBC 3.73 L (3.80-5.40) m/uL Neutrophils # 11.3 H (1.3-7.7) k/uL Assessment and Plan Assessment: Status post repeat section with bilateral partial salpingectomy postoperative day #1 Plan: Continue with postoperative and care. Will advance diet as tolerated. May shower.
--- NOTE | 2021-10-03 13:20 | P.PN ---
Progress Note - Text Progress Note Date: 10/03/21 Postoperative day 1 status post section under spinal anesthesia, and i ntrathecal morphine given for postoperative analgesia, patient doing well, there is no anesthesia related complications, Patient had no headache, vital signs stable , Assessment and plan= postop day 1 status post , doing well there is no anesthesia related complication.
[2021-10-03] MEDS: IBUPROFEN 600 MG TAB PO PRN ×2 (16:56→23:35)
[2021-10-03] MEDS: SENNOSIDES-DOCUSATE SODIUM 1 EACH TAB PO SCH ×2 (19:32→20:23)
[2021-10-04] MEDS: ACETAMINOPHEN TAB 500 MG TAB PO PRN ×3 (04:04→19:45)
[2021-10-04] MEDS: SENNOSIDES-DOCUSATE SODIUM 1 EACH TAB PO SCH ×2 (09:24→19:44)
[2021-10-04] MEDS: IBUPROFEN 600 MG TAB PO PRN ×3 (09:24→23:14)
--- NOTE | 2021-10-04 12:27 | P.PNOBGPC ---
Subjective - Subjective Principal diagnosis: Status post repeat section with tubal ligation by mouth day #2 Interval history: Patient is doing well. She is ambulating. She is passing flatus but no bowel movement yet. Lochia is decreasing. Baby still is in level I nursery. Patient reports: Reports appetite normal, Reports voiding normally, Reports pain well controlled, Reports ambulating normally : other (In level I nursery) Objective - Vital Signs Latest vital signs: Vital Signs Temp Pulse Resp BP Pulse Ox 10/04/21 08:00 98.3 F 87 16 99/65 10/03/21 23:35 97.7 F 95 16 109/67 96 10/03/21 17:00 99.0 F 100 16 112/68 99 10/03/21 12:00 16 100 Intake and Output 10/03/21 10/04/21 10/04/21 21:59 06:59 14:59 Other: # Voids 2 - Exam Extremities: Present: normal. Absent: tenderness Abdomen: Present: normal appearance, soft (Positive bowel sounds 4). Absent: distention, tenderness Incision: Present: normal, dry, intact. Absent: erythematous Uterus: Present: normal, firm. Absent: tenderness Assessment and Plan Assessment: Status post repeat section with bilateral partial salpingectomy postoperative day #2 Plan: Continue with postoperative and care.
[2021-10-05] MEDS: ACETAMINOPHEN TAB 500 MG TAB PO PRN ×2 (02:28→10:56)
[2021-10-05] MEDS: IBUPROFEN 600 MG TAB PO PRN (05:31)
--- NOTE | 2021-10-05 05:59 | P.PNOBGPC ---
Subjective - Subjective Patient reports: Reports appetite normal, Reports voiding normally, Reports pain well controlled, Reports ambulating normally : doing well Objective - Vital Signs Latest vital signs: Vital Signs Temp Pulse Resp BP Pulse Ox 10/04/21 23:15 98.4 F 93 18 106/68 96 10/04/21 16:00 98.6 F 94 14 105/67 10/04/21 08:00 98.3 F 87 16 99/65 Intake and Output 10/04/21 10/04/21 10/05/21 14:59 22:59 06:59 Other: # Voids 2 2 2 - Exam Lungs: bilateral: normal Chest: Normal S1, Normal S2 Extremities: Present: normal Abdomen: Present: normal appearance, soft. Absent: distention, tenderness Incision: Present: normal, dry, intact Uterus: Present: normal, firm Assessment and Plan Assessment: Postoperative day #3. Patient is resting without complaints and wishes to go. Vital signs are stable she is afebrile. Uterus is firm nontender and her incision is intact and dry. Impression is a normal postoperative course. Plan is to continue continue routine postoperative care discharge home this morning. (1) 37 weeks gestation of Current Visit: No Status: Acute Code(s): Z3A.37 - 37 WEEKS GESTATION OF SNOMED Code(s): 93294052 (2) Previous delivery affecting Current Visit: No Status: Acute Code(s): O34.219 - MATERNAL CARE FOR UNSP TYPE SCAR FROM PREVIOUS DEL SNOMED Code(s): 298092989 (3) Circumvallate placenta Current Visit: No Status: Acute Code(s): O43.119 - CIRCUMVALLATE PLACENTA, UNSPECIFIED TRIMESTER SNOMED Code(s): 7063551 (4) Placental cyst affecting in third trimester Current Visit: No Status: Acute Code(s): O43.193 - OTHER MALFORMATION OF PLACENTA, THIRD TRIMESTER SNOMED Code(s): 101495671 (5) Family planning Current Visit: No Status: Acute Code(s): Z30.09 - ENCOUNTER FOR OTH GENERAL CNSL AND ADVICE ON CONTRACEPTION SNOMED Code(s): 289891601 (6) Substance abuse affecting in third trimester, antepartum Current Visit: No Status: Acute Code(s): O99.323 - DRUG USE COMPLICATING , THIRD TRIMESTER SNOMED Code(s): 75539416
--- NOTE | 2021-10-05 06:02 | P.DS ---
Providers Date of admission: 10/02/21 06:12 Expected date of discharge: 10/05/21 Attending physician: Mao Judd Primary care physician: Stated None - Discharge Diagnosis(es) (1) 37 weeks gestation of Current Visit: No Status: Acute (2) Previous delivery affecting Current Visit: No Status: Acute (3) Circumvallate placenta Current Visit: No Status: Acute (4) Placental cyst affecting in third trimester Current Visit: No Status: Acute (5) Family planning Current Visit: No Status: Acute (6) Substance abuse affecting in third trimester, antepartum Current Visit: No Status: Acute Hospital Course: Please see dictated H&P for intimate details of this patient's admission. In brief summary this is a 31-year-old 4 para 1 female 37-2/7 weeks gestation admitted to labor and delivery for repeat section and tubal ligation secondary to circumvallate placenta and placental cyst. Patient undergoes above-named surgery for viable female infant. Please see dictated delivery note. Postoperative patient does well on postoperative 3 she felt be stable for discharge home follow up with me in 1 week. Procedures: Repeat low transverse section and bilateral partial salpingectomy Patient Condition at Discharge: Good Plan - Discharge Summary New Discharge Prescriptions: New Ibuprofen [Motrin] 600 mg PO Q6H PRN #30 tab PRN Reason: Pain oxyCODONE HCL [OxyIR] 5 mg PO Q4HR PRN #18 tab PRN Reason: Pain No Action Pnv,Calcium 72/Iron/Folic Acid [ Plus Tablet] 1 each PO DAILY Discharge Medication List Pnv,Calcium 72/Iron/Folic Acid [ Plus Tablet] 1 each PO DAILY 12/07/19 [History] Ibuprofen [Motrin] 600 mg PO Q6H PRN #30 tab 10/02/21 [Rx] oxyCODONE HCL [OxyIR] 5 mg PO Q4HR PRN #18 tab 10/02/21 [Rx] Follow up Appointment(s)/Referral(s): Mao Judd MD [STAFF PHYSICIAN] - 11/12/21 11:15 am (Please see me in 1 week for an incision check.) Patient Instructions/Handouts: (DC) Activity/Diet/Wound Care/Special Instructions: No strenuous activities or heavy lifting for 6 weeks. No intercourse or anything per vagina for 6 weeks. Please call if any fever, chills, excessive vaginal bleeding, and/or abdominal pain. Discharge Disposition: HOME SELF-CARE
[2021-10-05] MEDS: SENNOSIDES-DOCUSATE SODIUM 1 EACH TAB PO SCH (10:33)
[2021-10-05 10:37] VITALS: BP 101/69; PULSE 90; RESP 14; TEMP 98.6
== END 2021-10-05 12:51 | disposition home or self-care (01) | DRG 784 ==
LOC: 4FBP 06:12
PROVIDERS: ADMIT Obstetrics & Gynecology; ATTEND Obstetrics & Gynecology
PROC: 0UB70ZZ Excision of Bilateral Fallopian Tubes, Open Approach (ICD-10-PCS; 2021-10-02)
PROC: 10D00Z1 Extraction of Products of Conception, Low, Open Approach (ICD-10-PCS; principal; 2021-10-02 08:00)
DX: O34.211 Maternal care for low transverse scar from previous cesarean delivery (principal); O99.324 Drug use complicating childbirth; J45.909 Unspecified asthma, uncomplicated; O36.5131 Maternal care for known or suspected placental insufficiency, third trimester, fetus 1; O43.113 Circumvallate placenta, third trimester; O99.334 Smoking (tobacco) complicating childbirth; F17.210 Nicotine dependence, cigarettes, uncomplicated; Z3A.37 37 weeks gestation of pregnancy; F12.90 Cannabis use, unspecified, uncomplicated; O99.52 Diseases of the respiratory system complicating childbirth; Z30.2 Encounter for sterilization; Z37.0 Single live birth
CPT/HCPCS: 80306; 85025; 86850; 86900; 86901; 88302; 88307